=== PATIENT | female | born 1965 | race African-American/Black ===

== ENCOUNTER → 2017-03-16 | Outpatient (CLI) | payer OTHER ==
--- NOTE | ~2017-03-16 | CR230 ---
[facility] A Service of [facility] RADIOLOGY TEXT RESULTS PATIENT: ALINA FREY LOCATION: [facility] : 69 UNIT #: [id number] AGE: [address]: KENNETH WISDOM MD SEX: F ORDER DR: [id number] [facility] [address]. [place], [place] [address] [id number] O MR#: [id number] Acc #: [id number] NAME: ALINA FREY : 1965 SEX: F STUDY DATE/TIME: 03/16/2017 10:37 UNIT: [facility] ROOM: STUDY DESCRIPTION: CR Shoulder Min 2 View Rt Attending Physician: Kenneth Wisdom M.D. Referring Physician: Kenneth Wisdom M.D. Ordering Physician: Kenneth Wisdom M.D. Primary Care Physician: Kenneth Wisdom M.D. MEDICAL IMAGING REPORT This report is preliminary unless electronic signature is present EXAM Right shoulder, 2 views, 03/16/17, 1037 hours. CLINICAL HISTORY 51-year-old woman complaining of 3-4 month history of neck and shoulder pain. History of occasional headaches and numbness in hands. COMPARISON None. FINDINGS AP views in internal and external rotation demonstrate normal bone density range of motion. The glenohumeral joint and acromioclavicular joint are joints are normal. The clavicle is normal. IMPRESSION Negative right shoulder. Dictated by... Sandee Bradshaw M.D. THIS IS AN ELECTRONICALLY VERIFIED REPORT Sandee Bradshaw M.D. at 03/17/2017 9:36 AM SIMBA/margaret TD: 03/16/2017 17:07 JOB #: [id number] MEDICAL IMAGING REPORT Page 1 of 1 COPY
--- NOTE | ~2017-03-16 | CR61 ---
[facility] A Service of [facility] RADIOLOGY TEXT RESULTS PATIENT: ALINA FREY LOCATION: [facility] : 69 UNIT #: [id number] AGE: [address]: KENNETH WISDOM MD SEX: F ORDER DR: [id number] [place] [id number] [facility]. [place], [place] [address] [id number] O MR#: [id number] Acc #: [id number] NAME: ALINA FREY : 1965 SEX: F STUDY DATE/TIME: 03/16/2017 UNIT: [facility] ROOM: STUDY DESCRIPTION: CR Cervical Spine Min 5 Views Attending Physician: Kenneth Wisdom M.D. Referring Physician: Kenneth Wisdom M.D. Ordering Physician: Kenneth Wisdom M.D. Primary Care Physician: Kenneth Wisdom M.D. MEDICAL IMAGING REPORT This report is preliminary unless electronic signature is present EXAM Cervical spine series 03/16/2017, 1038 hours HISTORY 51-year-old woman with complaint of 3-4 month history of neck and right shoulder pain with occasional headaches and numbness in both hands. No reported injury. COMPARISON None. FINDINGS AP, lateral, bilateral oblique, open-mouth views were performed. C1 to T1 are visualized. There is no prevertebral soft tissue swelling. There is no vertebral body height loss. There is minimal disc height loss at C5-C6 with anterior osteophyte and calcification of the anterior annulus. Facet joints are normal. No fracture is seen. Bilateral oblique views demonstrate no bony foraminal compromise. IMPRESSION 1. Mild degenerative change at C5-C6. There is no fracture or malalignment. 2. Bilateral oblique views demonstrate no bony foraminal compromise. Dictated by... Sandee Bradshaw M.D. THIS IS AN ELECTRONICALLY VERIFIED REPORT Sandee Bradshaw M.D. at 03/17/2017 9:36 AM SMM/pcl [facility] A Service of [facility] RADIOLOGY TEXT RESULTS PATIENT: ALINA FREY LOCATION: [facility] #: [id number] : 69 UNIT #: [id number] AGE: [address]: KENNETH WISDOM MD SEX: F ORDER DR: TD: 03/16/2017 17:01 JOB #: [id number] MEDICAL IMAGING REPORT Page 1 of 1 COPY
== END | disposition home or self-care (01) ==
LOC: CRAD 10:06
DX: M54.2 Cervicalgia (principal); M25.511 Pain in right shoulder; M47.892 Other spondylosis, cervical region
CPT/HCPCS: 72050; 73030